=== PATIENT | female | born 1970 | race Caucasian/White ===

== ENCOUNTER 2020-11-03 10:04 | Inpatient (IN) | payer BC ==
[2020-11-03] MEDS ORDERED: Sodium Chloride 0.9% 10 ML Syringe FLUSH PRN ×2 (10:13→12:44)
[2020-11-03] MEDS ORDERED: Etomidate 2 MG/ML 20 ML SDV IVPUSH ONE ×2 (10:15→13:00)
[2020-11-03] MEDS ORDERED: Succinylcholine 200 MG/10 ML MDV IV ONE (10:15)
--- NOTE | 2020-11-03 10:41 | CR ---
Chest: Supine view of the chest was obtained. Comparison: No prior chest imaging is available. Endotracheal tube is seen. Tip lies approximately 1.3 cm above the zach. Nasogastric tube courses off the inferior edge of the exam within the stomach. Lungs are clear with no acute parenchymal change. Bony structures show nothing acute. Impression: 1. Endotracheal tube with tip lying 1.3 cm above the zach. 2. Nasogastric tube coursing off the inferior edge of the film within the stomach. 3. Nothing acute is otherwise seen on supine chest x-ray. Diagnostic code #3
[2020-11-03] MEDS: Sodium Chloride 0.9% 1,000 ML IV SCH ×2 (10:44→19:07)
[2020-11-03] MEDS: propofoL 100 ML IV SCH ×2 (10:44→15:10)
[2020-11-03 11:19] LABS: ACETAMINOPHEN 0 ug/mL (10-30)
[2020-11-03] MEDS ORDERED: Ondansetron 4 MG/2 ML SDV IV PRN (12:44)
[2020-11-03] MEDS ORDERED: Acetaminophen 650 MG Supp RECTAL PRN (12:44)
[2020-11-03] MEDS ORDERED: Sodium Chloride 0.9% 1,000 ML IV SCH (12:45)
[2020-11-03] MEDS ORDERED: Heparin Sodium 5,000 Units/ML Vial SUBCUT SCH (12:45)
--- NOTE | 2020-11-03 12:45 | EDM.PDOC ---
ED HPI GENERAL MEDICAL PROBLEM - General Chief Complaint: Behavioral/Psych Stated Complaint: [facility] Time Seen by Provider: 11/03/20 10:13 Source of Information: Reports: EMS, Family History Limitations: Reports: Altered Mental Status - History of Present Illness INITIAL COMMENTS - FREE TEXT/NARRATIVE: The patient presents by [facility] for an overdose. The patient called her brother and said she took 30-40 of her sleeping pills to end her life. He called 911 and police and EMS arrived to find the patient responding only to deep sternal rub. She was only responsive to sternal rub when she arrived here. She could not give me any history. He brother did call and he confirmed the patient said she took the restoril. She has been depressed. She overdoses 4 years ago and 1 year ago. Onset: Sudden Duration: Hour(s): Severity: Moderate Improves with: Reports: None Worsens with: Reports: None Associated Symptoms: Reports: No Other Symptoms - Related Data Allergies Allergy/AdvReac Type Severity Reaction Status Date / Time No Known Allergies Allergy Verified 11/03/20 10:33 Home Meds: Home Meds Acamprosate [Campral] 333 mg PO TID 11/03/20 [History] LORazepam [Ativan] 0.5 mg PO BID PRN 11/03/20 [History] Meclizine [Antivert] 25 mg PO TID 11/03/20 [History] Melatonin 3 mg PO BEDTIME 11/03/20 [History] Meloxicam 7.5 mg PO DAILY 11/03/20 [History] Metoprolol Succinate [Toprol Xl] 25 mg PO DAILY 11/03/20 [History] Metoprolol Succinate [Toprol Xl] 50 mg PO DAILY 11/03/20 [History] Orphenadrine [Norflex] 100 mg PO BID PRN 11/03/20 [History] Temazepam [Restoril] 30 mg PO BEDTIME PRN 11/03/20 [History] buPROPion HCL [Wellbutrin Xl] 150 mg PO DAILY 11/03/20 [History] Social & Family History - Tobacco Use Tobacco Use Status *Q: Unknown Ever Used Tobacco ED ROS GENERAL - Review of Systems Review Of Systems: Unable To Obtain Reason Not Obtained: Patient responding only to sternal rub - Physical Exam Exam: See Below Exam Limited By: Altered Mental Status General Appearance: Lethargic Ears: Normal External Exam Nose: Normal Inspection Head Exam: Atraumatic, Normocephalic Neck: Normal Inspection Respiratory/Chest: No Respiratory Distress, Lungs Clear, Normal Breath Sounds Cardiovascular: Regular Rate, Rhythm, No Edema, No Murmur GI/Abdominal: Soft, Non-Tender, No Organomegaly, No Mass Neuro Exam (Abbreviated): Other (patient will moan with deep sternal rub and localize) Endotracheal Intubation - Endotracheal Intubation Time of Intubation: 10:10 ET Intubation Indication: Airway Protection Preparation: Suction, Balloon Tested, BVM Set Up, Difficult Airway Equip Pre-Oxygenation: 100% FiO2 Anesthesia Meds: Etomidate, Succinylcholine Placement: Orotracheal, Cuffed, Uncomplicated Placement Cords Visualized: Yes ETT Size In mm: 7.5 Number of Attempts: 1 Confirmed By: CO2 Indicator, Bilateral Breath Sounds, Chest Xray Tube Secured By: By RT #1 Interpretation EKG Date: 11/03/20 Time: 10:52 Rhythm: NSR Rate (Beats/Min): 84 [place]: Normal P-Wave: Present QRS: Normal ST-T: Normal QT: Normal Course - Vital Signs Last Recorded V/S: Last Vital Signs Temp 97.7 F 11/03/20 10:08 Pulse 85 11/03/20 10:08 Resp 8 L 11/03/20 10:08 BP 125/80 11/03/20 10:08 Pulse Ox 95 11/03/20 10:08 - Orders/Labs/Meds Orders: Active Orders 24 hr Category Date Time Status Patient Status [ADT] Routine ADT 11/03/20 12:44 Active Bedrest Bedside Commode [RC] ASDIRECTED Care 11/03/20 12:44 Active Cardiac Monitoring [RC] . DIRECTED Care 11/03/20 10:13 Active Cardiac Monitoring [RC] CONTINUOUS Care 11/03/20 12:46 Active Mchugh Catheter Insertion [Insert Urinary Catheter] [OM. Care 11/03/20 10:30 Ordered PC] Q24H Gastrointestinal Tube Mgmt [RC] ASDIRECTED Care 11/03/20 10:16 Active Intake and Output Strict [RC] ASDIRECTED Care 11/03/20 12:44 Active Oxygen Therapy [RC] ASDIRECTED Care 11/03/20 12:44 Active Peripheral IV Care [RC] . DIRECTED Care 11/03/20 10:14 Active Peripheral IV Care [RC] . DIRECTED Care 11/03/20 12:48 Active Pulse Oximetry [RC] CONTINUOUS Care 11/03/20 12:46 Active RASS Sedation Scale [RC] ASDIRECTED Care 11/03/20 10:16 Active RT Ventilator, Adult [RC] ASDIRECTED Care 11/03/20 10:33 Active Urinary Catheter Assessment [RC] ASDIRECTED Care 11/03/20 10:17 Active Vital Signs [RC] Q6H Care 11/03/20 12:44 Active OT Evaluation and Treatment [CONS] Routine Cons 11/03/20 12:48 Active PT Evaluation and Treatment [CONS] Routine Cons 11/03/20 12:48 Active Nothing per Oral Now Diet [DIET] Diet 11/03/20 Dinner Active MAGNESIUM [CHEM] Routine Lab 11/04/20 06:00 Ordered UA W/MICROSCOPIC [URIN] Routine Lab 11/03/20 12:44 Ordered Acetaminophen [Tylenol] Med 11/03/20 12:44 Active 650 mg RECTAL Q4H PRN Famotidine [Pepcid] Med 11/03/20 21:00 Active 20 mg IVPUSH BID Heparin Sodium Med 11/03/20 12:45 Active 5,000 units SUBCUT Q8H Ondansetron [Zofran] Med 11/03/20 12:44 Active 4 mg IV Q4H PRN Sodium Chloride 0.9% [Normal Saline] 1,000 ml Med 11/03/20 10:15 Active IV ASDIRECTED Sodium Chloride 0.9% [Normal Saline] 1,000 ml Med 11/03/20 12:45 Active IV ASDIRECTED Sodium Chloride 0.9% [Saline Flush] Med 11/03/20 10:13 Active 10 ml FLUSH ASDIRECTED PRN Sodium Chloride 0.9% [Saline Flush] Med 11/03/20 12:44 Active 10 ml FLUSH ASDIRECTED PRN propofoL [Diprivan 100 ML] 100 ml Med 11/03/20 10:30 Active IV TITRATE Desired Level of Sedation (RASS) [AST] Click to Edit Oth 11/03/20 10:16 Ordered NG [Nasogastric Orogastric Tube Insertion] [OM.PC] Oth 11/03/20 10:16 Ordered Routine Peripheral IV Insertion Adult [OM.PC] Routine Oth 11/03/20 12:44 Ordered Peripheral IV Insertion Adult [OM.PC] Stat Ot 11/03/20 10:13 Ordered Precautions [COMM] Routine Oth 11/03/20 12:49 Ordered Seizure Precautions [OM.PC] Routine Oth 11/03/20 12:44 Ordered Resuscitation Status Routine Resus Stat 11/03/20 12:44 Ordered Medication Orders Acetaminophen (Acetaminophen 650 Mg Supp) 650 mg RECTAL Q4H PRN PRN Reason: Pain (mild 1-3) Famotidine (Famotidine 20 Mg/2 Ml Sdv) 20 mg IVPUSH BID JADE Heparin Sodium (Porcine) (Heparin Sodium 5,000 Units/Ml Vial) 5,000 units SUBCUT Q8H JADE Propofol (Diprivan 100 Ml) 100 mls @ 2.4 mls/hr IV TITRATE JADE; Protocol Last Admin: 11/03/20 10:44 Dose: 25 mcg/kg/min, 12 mls/hr Documented by: SANDBLA Sodium Chloride (Normal Saline) 1,000 mls @ 125 mls/hr IV ASDIRECTED JADE Last Admin: 11/03/20 10:44 Dose: 125 mls/hr Documented by: SANDBLA Sodium Chloride (Normal Saline) 1,000 mls @ 125 mls/hr IV ASDIRECTED JADE Ondansetron HCl (Ondansetron 4 Mg/2 Ml Sdv) 4 mg IV Q4H PRN PRN Reason: Nausea/Vomiting Sodium Chloride (Sodium Chloride 0.9% 10 Ml Syringe) 10 ml FLUSH ASDIRECTED PRN PRN Reason: Keep Vein Open Last Admin: 11/03/20 10:45 Dose: 10 ml Documented by: SANDBLA Sodium Chloride (Sodium Chloride 0.9% 10 Ml Syringe) 10 ml FLUSH ASDIRECTED PRN PRN Reason: Keep Vein Open Labs: Laboratory Tests 11/03/20 11/03/20 11/03/20 Range/Units 10:33 10:34 10:48 WBC (3.98-10.04) K/mm3 RBC (3.98-5.22) M/mm3 Hgb (11.2-15.7) gm/dl Hct (34.1-44.9) % MCV (79.4-94.8) fl MCH (25.6-32.2) pg MCHC (32.2-35.5) g/dl RDW Std Deviation (36.4-46.3) fL Plt Count (182-369) K/mm3 MPV (9.4-12.3) fl Neut % (Auto) (34.0-71.1) % Lymph % (Auto) (19.3-51.7) % [place] % (Auto) (4.7-12.5) % Eos % (Auto) (0.7-5.8) Baso % (Auto) (0.1-1.2) % Neut # (Auto) (1.56-6.13) K/mm3 Lymph # (Auto) (1.18-3.74) K/mm3 [place] # (Auto) (0.24-0.36) K/mm3 Eos # (Auto) (0.04-0.36) K/mm3 Baso # (Auto) (0.01-0.08) K/mm3 Puncture Site Rt brachial ABG pH 7.28 L (7.35-7.45) ABG pCO2 42.1 (35.0-45.0) mmHg ABG pO2 130.0 H (80.0-100.0) mmHg ABG HCO3 18.9 L (22.0-26.0) meq/L ABG O2 Saturation 97.8 H (96.0-97.0) % ABG Base Excess -7.2 L (-2-2.0) Edenilson Test Positive A-a Gradient 103 mmHg O2 Delivery Device Ventilator Oxygen Flow Rate FiO2 40.00 (21.00-100.00) % Tidal Volume 425.0 cc PEEP 5.0 cmH20 Sodium (136-145) mEq/L Potassium (3.5-5.1) mEq/L Chloride (98-107) mEq/L Carbon Dioxide (21-32) mEq/L Anion Gap (5-15) BUN (7-18) mg/dL Creatinine (0.55-1.02) mg/dL Est Cr Clr Drug Dosing mL/min Estimated GFR (MDRD) (>60) mL/min BUN/Creatinine Ratio (14-18) Glucose (70-99) mg/dL Calcium (8.5-10.1) mg/dL Total Bilirubin (0.2-1.0) mg/dL AST (15-37) U/L ALT (14-59) U/L Alkaline Phosphatase (46-116) U/L Total Protein (6.4-8.2) g/dl Albumin (3.4-5.0) g/dl Globulin gm/dL Albumin/Globulin Ratio (1-2) Salicylates (2.8-20) mg/dL Urine Opiates Screen Negative (OQWZGY=376) Ur Buprenorphine Scrn Negative (CUTOFF=10) Ur Oxycodone Screen Negative (XSE8OK=123) Urine Methadone Screen Negative (LYKLNK=877) Ur Propoxyphene Screen Negative (IJULOR=552) Acetaminophen (10-30) ug/mL Ur Barbiturates Screen Negative (MTHCRX=817) Ur Tricyclics Screen Negative (NBPDSJ=632) Ur Phencyclidine Scrn Negative (CUTOFF=25) Ur Amphetamine Screen Negative (PPDLQH=248) U Methamphetamines Scrn Negative (FFIBKN=159) U Benzodiazepines Scrn Presumptive positive H (UNNGYJ=204) U Cocaine Metab Screen Negative (QZXPXN=502) U Marijuana (THC) Screen Negative (CUTOFF=50) Ethyl Alcohol (0.00) gm% SARS-CoV-2 RNA (JM) Negative (NEGATIVE) 11/03/20 11/03/20 11/03/20 Range/Units 10:48 10:48 10:48 WBC 10.36 H (3.98-10.04) K/mm3 RBC 4.93 (3.98-5.22) M/mm3 Hgb 15.1 (11.2-15.7) gm/dl Hct 45.8 H (34.1-44.9) % MCV 92.9 (79.4-94.8) fl MCH 30.6 (25.6-32.2) pg MCHC 33.0 (32.2-35.5) g/dl RDW Std Deviation 43.0 (36.4-46.3) fL Plt Count 246 (182-369) K/mm3 MPV 9.6 (9.4-12.3) fl Neut % (Auto) 68.6 (34.0-71.1) % Lymph % (Auto) 20.6 (19.3-51.7) % [place] % (Auto) 7.5 (4.7-12.5) % Eos % (Auto) 2.8 (0.7-5.8) Baso % (Auto) 0.2 (0.1-1.2) % Neut # (Auto) 7.11 H (1.56-6.13) K/mm3 Lymph # (Auto) 2.13 (1.18-3.74) K/mm3 [place] # (Auto) 0.78 H (0.24-0.36) K/mm3 Eos # (Auto) 0.29 (0.04-0.36) K/mm3 Baso # (Auto) 0.02 (0.01-0.08) K/mm3 Puncture Site ABG pH (7.35-7.45) ABG pCO2 (35.0-45.0) mmHg ABG pO2 (80.0-100.0) mmHg ABG HCO3 (22.0-26.0) meq/L ABG O2 Saturation (96.0-97.0) % ABG Base Excess (-2-2.0) [place]il[place] Test A-a Gradient mmHg O2 Delivery Device Oxygen Flow Rate FiO2 (21.00-100.00) % Tidal Volume cc PEEP cmH20 Sodium 143 (136-145) mEq/L Potassium 3.7 (3.5-5.1) mEq/L Chloride 110 H (98-107) mEq/L Carbon Dioxide 19 L (21-32) mEq/L Anion Gap 17.7 H (5-15) BUN 12 (7-18) mg/dL Creatinine 0.7 (0.55-1.02) mg/dL Est Cr Clr Drug Dosing 86.52 mL/min Estimated GFR (MDRD) > 60 (>60) mL/min BUN/Creatinine Ratio 17.1 (14-18) Glucose 101 H (70-99) mg/dL Calcium 7.9 L (8.5-10.1) mg/dL Total Bilirubin 0.3 (0.2-1.0) mg/dL AST 28 (15-37) U/L ALT 44 (14-59) U/L Alkaline Phosphatase 70 (46-116) U/L Total Protein 6.8 (6.4-8.2) g/dl Albumin 3.3 L (3.4-5.0) g/dl Globulin 3.5 gm/dL Albumin/Globulin Ratio 0.9 L (1-2) Salicylates 2.5 L (2.8-20) mg/dL Urine Opiates Screen (MBLYIP=633) Ur Buprenorphine Scrn (CUTOFF=10) Ur Oxycodone Screen (JMK6RL=746) Urine Methadone Screen (JBFSEX=128) Ur Propoxyphene Screen (IELWTJ=789) Acetaminophen 0 L (10-30) ug/mL Ur Barbiturates Screen (BCKTBK=308) Ur Tricyclics Screen (PAQFES=112) Ur Phencyclidine Scrn (CUTOFF=25) Ur Amphetamine Screen (EERMIU=788) U Methamphetamines Scrn (ILOZBI=926) U Benzodiazepines Scrn (MKSTVB=953) U Cocaine Metab Screen (XSXVDR=375) U Marijuana (THC) Screen (CUTOFF=50) Ethyl Alcohol 0.25 (0.00) gm% SARS-CoV-2 RNA (JM) (NEGATIVE) Meds: Medications Generic Name Dose Route Start Last Admin Trade Name Freq PRN Reason Stop Dose Admin Acetaminophen 650 mg 11/03/20 12:44 Acetaminophen 650 Mg Supp RECTAL Q4H PRN Pain (mild 1-3) Famotidine 20 mg 11/03/20 21:00 Famotidine 20 Mg/2 Ml Sdv IVPUSH BID JADE Heparin Sodium (Porcine) 5,000 units 11/03/20 12:45 Heparin Sodium 5,000 Units/Ml Vial SUBCUT Q8H JADE Propofol 100 mls @ 2.4 mls/hr 11/03/20 10:30 11/03/20 10:44 Diprivan 100 Ml IV 25 mcg/kg/min TITRATE JADE 12 mls/hr Administration Protocol 5 MCG/KG/MIN Sodium Chloride 1,000 mls @ 125 mls/hr 11/03/20 10:15 11/03/20 10:44 Normal Saline IV 125 mls/hr ASDIRECTED JADE Administration Sodium Chloride 1,000 mls @ 125 mls/hr 11/03/20 12:45 Normal Saline IV ASDIRECTED JADE Ondansetron HCl 4 mg 11/03/20 12:44 Ondansetron 4 Mg/2 Ml Sdv IV Q4H PRN Nausea/Vomiting Sodium Chloride 10 ml 11/03/20 10:13 11/03/20 10:45 Sodium Chloride 0.9% 10 Ml Syringe FLUSH 10 ml ASDIRECTED PRN Administration Keep Vein Open Sodium Chloride 10 ml 11/03/20 12:44 Sodium Chloride 0.9% 10 Ml Syringe FLUSH ASDIRECTED PRN Keep Vein Open Discontinued Medications Generic Name Dose Route Start Last Admin Trade Name Edvin PRN Reason Stop Dose Admin Etomidate 20 mg 11/03/20 10:15 11/03/20 10:09 Etomidate 2 Mg/Ml 20 Ml Sdv IVPUSH 11/03/20 10:16 20 mg ONETIME ONE Administration Succinylcholine Chloride 100 mg 11/03/20 10:15 11/03/20 10:09 Succinylcholine 200 Mg/10 Ml Mdv IV 11/03/20 10:16 100 mg ONETIME ONE Administration - Re-Assessments/Exams Free Text/Narrative Re-Assessment/Exam: 11/03/20 12:59 The patient was not alert and would respond to deep sternal rub. I was worried about her airway. I ordered etomidate 20mg, succinylcholine 100mg and I intubated the patient without difficulty. I ordered propofol for sedation I ordered labs, EKG, drug screen, CXR and COVID 19. An NG tube and mchugh cath were placed. Her EKG shows a NSR with no acute changes. Her CXR shows good placement of the ET tube and NG tube. Her WBC is elevated at 10.36. Her Ph was 7.28. Her pCO2 was normal at 42. He pO2 was elevated at 130. Her anion gap was elevated at 17.7. Her aspirin and tylenol were normal. Her drug screen was positive for benzos which she is on. Poison control was contacted and they said the restoril has a short half life. They are concerned there may have been something else she may have taken. Her alcohol was elevated that could have made things worse. She will need to be admitted. I called Dr Jha and she agreed to the admission. 11/03/20 13:06 Critical care time was 45minutes. Departure - Departure Time of Disposition: 13:10 Disposition: Admitted As Inpatient 66 Condition: Critical Clinical Impression: Suicidal ideation, Respiratory difficulty Overdose Qualifiers: Encounter type: initial encounter Injury intent: intentional self-harm Qualified Code(s): T50.902A - Poisoning by unspecified drugs, medicaments and biological substances, intentional self-harm, initial encounter Depression Qualifiers: Depression Type: other depression Qualified Code(s): F32.89 - Other specified depressive episodes - Discharge Information Referrals: Lady Robledo PA-C [Primary Care Provider] - Forms: ED Department Discharge Sepsis Event Note (ED) - Evaluation Sepsis Screening Result: No Definite Risk - Focused Exam Vital Signs: Vital Signs Temp Pulse Resp BP Pulse Ox 11/03/20 10:08 97.7 F 85 8 L 125/80 95 - My Orders Last 24 Hours: My Active Orders 11/03/20 10:13 Cardiac Monitoring [RC] . DIRECTED Sodium Chloride 0.9% [Saline Flush] 10 ml FLUSH ASDIRECTED PRN Peripheral IV Insertion Adult [OM.PC] Stat 11/03/20 10:14 Peripheral IV Care [RC] . DIRECTED 11/03/20 10:15 Sodium Chloride 0.9% [Normal Saline] 1,000 ml IV ASDIRECTED 11/03/20 10:16 Gastrointestinal Tube Mgmt [RC] ASDIRECTED RASS Sedation Scale [RC] ASDIRECTED Desired Level of Sedation (RASS) [AST] Click to Edit NG [Nasogastric Orogastric Tube Insertion] [OM.PC] Routine 11/03/20 10:17 Urinary Catheter Assessment [RC] ASDIRECTED 11/03/20 10:30 Mchugh Catheter Insertion [Insert Urinary Catheter] [OM.PC] Q24H propofoL [Diprivan 100 ML] 100 ml IV TITRATE 11/03/20 10:33 RT Ventilator, Adult [RC] ASDIRECTED - Assessment/Plan Last 24 Hours: My Active Orders 11/03/20 10:13 Cardiac Monitoring [RC] . DIRECTED Sodium Chloride 0.9% [Saline Flush] 10 ml FLUSH ASDIRECTED PRN Peripheral IV Insertion Adult [OM.PC] Stat 11/03/20 10:14 Peripheral IV Care [RC] . DIRECTED 11/03/20 10:15 Sodium Chloride 0.9% [Normal Saline] 1,000 ml IV ASDIRECTED 11/03/20 10:16 Gastrointestinal Tube Mgmt [RC] ASDIRECTED RASS Sedation Scale [RC] ASDIRECTED Desired Level of Sedation (RASS) [AST] Click to Edit NG [Nasogastric Orogastric Tube Insertion] [OM.PC] Routine 11/03/20 10:17 Urinary Catheter Assessment [RC] ASDIRECTED 11/03/20 10:30 Mchugh Catheter Insertion [Insert Urinary Catheter] [OM.PC] Q24H propofoL [Diprivan 100 ML] 100 ml IV TITRATE 11/03/20 10:33 RT Ventilator, Adult [RC] ASDIRECTED
[2020-11-03] MEDS ORDERED: Succinylcholine 200 MG/10 ML MDV ONE (13:00)
--- NOTE | 2020-11-03 13:23 | PCM.HP.2 ---
H&P History of Present Illness - General Date of Service: 11/03/20 Admit Problem/Dx: Admission Diagnosis/Problem Admission Diagnosis/Problem Overdose of illicit drug Source of Information: Family History Limitations: Reports: Altered Mental Status, Other (sedated, intubated) - History of Present Illness Initial Comments - Free Text/Narative: 50yof with medical history of suicidal ideation and attempt, etoh abuse and dependence, anxiety, depression, chronic vertigo, insomnia, chronic pain, and hypertension took approximately 300 pills, temazepam and then called brother who stated she had slurred speech then was unresponsive and he called 911. She arrived in ER and poison control was called. The half life of med is short, labs are stable and she was intubated to protect her airway. No further history could be obtained Onset of Symptoms: Reports: Today Duration of Symptoms: Reports: Hour(s): Location: Reports: Generalized Severity: Severe Improves with: Reports: None Worsens with: Reports: None Associated Symptoms: Reports: Confusion - Related Data Allergies/Adverse Reactions: Allergies Allergy/AdvReac Type Severity Reaction Status Date / Time No Known Allergies Allergy Verified 11/03/20 10:33 Home Medications: Home Meds Acamprosate [Campral] 333 mg PO TID 11/03/20 [History] LORazepam [Ativan] 0.5 mg PO BID PRN 11/03/20 [History] Meclizine [Antivert] 25 mg PO TID 11/03/20 [History] Melatonin 3 mg PO BEDTIME 11/03/20 [History] Meloxicam 7.5 mg PO DAILY 11/03/20 [History] Metoprolol Succinate [Toprol Xl] 25 mg PO DAILY 11/03/20 [History] Metoprolol Succinate [Toprol Xl] 50 mg PO DAILY 11/03/20 [History] Orphenadrine [Norflex] 100 mg PO BID PRN 11/03/20 [History] Temazepam [Restoril] 30 mg PO BEDTIME PRN 11/03/20 [History] buPROPion HCL [Wellbutrin Xl] 150 mg PO DAILY 11/03/20 [History] Past Medical History - Past Health History Medical/Surgical History: Denies Medical/Surgical History Cardiovascular History: Reports: Hypertension Musculoskeletal History: Reports: Other (See Below) (chonic pain, chronic spasm and leg cramps) Neurological History: Reports: Vertigo, Other (See Below) (insomnia) Psychiatric History: Reports: Addiction, Anxiety, Depression, Suicide Attempt, Suicidal Ideation, Other (See Below) (etoh abuse and dependance) Social & Family History - Tobacco Use Tobacco Use Status *Q: Unknown Ever Used Tobacco H&P Review of Systems - Review of Systems: Review Of Systems: Unable To Obtain Reason Not Obtained: intbuated nad sedated from overdose Exam - Exam Exam: See Below - Vital Signs Vital Signs: Last Vital Signs Temp 97.7 F 11/03/20 10:08 Pulse 85 11/03/20 10:08 Resp 8 L 11/03/20 10:08 BP 125/80 11/03/20 10:08 Pulse Ox 95 11/03/20 10:08 Weight: 176 lb 5.917 oz - Exam Quality Assessment: Supplemental Oxygen, Restraints, Other (intubated and sed ated) HEENT: Other (sluggish pupils) Neck: Supple, Trachea Midline Lungs: Other (course bilateral, intubated) Cardiovascular: Regular Rate, Regular Rhythm Extremities: Normal Inspection, No Pedal Edema Peripheral Pulses: 1+: Dorsalis Pedis (L), Dorsalis Pedis (R) Skin: Warm, Dry Neuro Extensive - Mental Status: Other (intubated and sedated) Psychiatric: Suicidal Ideation, Other (intubated and sedated) - Patient Data Lab Results Last 24 hrs: Laboratory Results - last 24 hr 11/03/20 11/03/20 11/03/20 Range/Units 10:33 10:34 10:37 WBC (3.98-10.04) K/mm3 RBC (3.98-5.22) M/mm3 Hgb (11.2-15.7) gm/dl Hct (34.1-44.9) % MCV (79.4-94.8) fl MCH (25.6-32.2) pg MCHC (32.2-35.5) g/dl RDW Std Deviation (36.4-46.3) fL Plt Count (182-369) K/mm3 MPV (9.4-12.3) fl Neut % (Auto) (34.0-71.1) % Lymph % (Auto) (19.3-51.7) % Cross % (Auto) (4.7-12.5) % Eos % (Auto) (0.7-5.8) Baso % (Auto) (0.1-1.2) % Neut # (Auto) (1.56-6.13) K/mm3 Lymph # (Auto) (1.18-3.74) K/mm3 Cross # (Auto) (0.24-0.36) K/mm3 Eos # (Auto) (0.04-0.36) K/mm3 Baso # (Auto) (0.01-0.08) K/mm3 Puncture Site Rt brachial ABG pH 7.28 L (7.35-7.45) ABG pCO2 42.1 (35.0-45.0) mmHg ABG pO2 130.0 H (80.0-100.0) mmHg ABG HCO3 18.9 L (22.0-26.0) meq/L ABG O2 Saturation 97.8 H (96.0-97.0) % ABG Base Excess -7.2 L (-2-2.0) Edenilson Test Positive A-a Gradient 103 mmHg O2 Delivery Device Ventilator Oxygen Flow Rate FiO2 40.00 (21.00-100.00) % Tidal Volume 425.0 cc PEEP 5.0 cmH20 Sodium (136-145) mEq/L Potassium (3.5-5.1) mEq/L Chloride (98-107) mEq/L Carbon Dioxide (21-32) mEq/L Anion Gap (5-15) BUN (7-18) mg/dL Creatinine (0.55-1.02) mg/dL Est Cr Clr Drug Dosing mL/min Estimated GFR (MDRD) (>60) mL/min BUN/Creatinine Ratio (14-18) Glucose (70-99) mg/dL Calcium (8.5-10.1) mg/dL Total Bilirubin (0.2-1.0) mg/dL AST (15-37) U/L ALT (14-59) U/L Alkaline Phosphatase (46-116) U/L Total Protein (6.4-8.2) g/dl Albumin (3.4-5.0) g/dl Globulin gm/dL Albumin/Globulin Ratio (1-2) Urine Color Yellow (Yellow) Urine Appearance Clear (Clear) Urine pH 6.5 (5.0-8.0) Ur Specific [place] 1.010 (1.005-1.030) Urine Protein Negative (Negative) Urine Glucose (UA) Negative (Negative) Urine Ketones Negative (Negative) Urine Occult Blood Negative (Negative) Urine Nitrite Negative (Negative) Urine Bilirubin Negative (Negative) Urine Urobilinogen 0.2 (0.2-1.0) Ur Leukocyte Esterase Negative (Negative) Urine RBC 0-5 (0-5) /hpf Urine WBC 0-5 (0-5) /hpf Ur Squamous Epith Cells 0-5 (0-5) /hpf Urine Bacteria Few (FEW) /hpf Urine Mucus Few (FEW) /hpf Salicylates (2.8-20) mg/dL Urine Opiates Screen (GRKCCH=311) Ur Buprenorphine Scrn (CUTOFF=10) Ur Oxycodone Screen (AGQ2HM=613) Urine Methadone Screen (TKWNMN=446) Ur Propoxyphene Screen (SZMHQW=670) Acetaminophen (10-30) ug/mL Ur Barbiturates Screen (FJPPBH=393) Ur Tricyclics Screen (OVZJZD=704) Ur Phencyclidine Scrn (CUTOFF=25) Ur Amphetamine Screen (PAUFSU=583) U Methamphetamines Scrn (GMPGVU=232) U Benzodiazepines Scrn (ZJQIPW=238) U Cocaine Metab Screen (UFIXZK=989) U Marijuana (THC) Screen (CUTOFF=50) Ethyl Alcohol (0.00) gm% SARS-CoV-2 RNA (JM) Negative (NEGATIVE) 11/03/20 11/03/20 11/03/20 Range/Units 10:48 10:48 10:48 WBC 10.36 H (3.98-10.04) K/mm3 RBC 4.93 (3.98-5.22) M/mm3 Hgb 15.1 (11.2-15.7) gm/dl Hct 45.8 H (34.1-44.9) % MCV 92.9 (79.4-94.8) fl MCH 30.6 (25.6-32.2) pg MCHC 33.0 (32.2-35.5) g/dl RDW Std Deviation 43.0 (36.4-46.3) fL Plt Count 246 (182-369) K/mm3 MPV 9.6 (9.4-12.3) fl Neut % (Auto) 68.6 (34.0-71.1) % Lymph % (Auto) 20.6 (19.3-51.7) % Cross % (Auto) 7.5 (4.7-12.5) % Eos % (Auto) 2.8 (0.7-5.8) Baso % (Auto) 0.2 (0.1-1.2) % Neut # (Auto) 7.11 H (1.56-6.13) K/mm3 Lymph # (Auto) 2.13 (1.18-3.74) K/mm3 Cross # (Auto) 0.78 H (0.24-0.36) K/mm3 Eos # (Auto) 0.29 (0.04-0.36) K/mm3 Baso # (Auto) 0.02 (0.01-0.08) K/mm3 Puncture Site ABG pH (7.35-7.45) ABG pCO2 (35.0-45.0) mmHg ABG pO2 (80.0-100.0) mmHg ABG HCO3 (22.0-26.0) meq/L ABG O2 Saturation (96.0-97.0) % ABG Base Excess (-2-2.0) Edenilson Test A-a Gradient mmHg O2 Delivery Device Oxygen Flow Rate FiO2 (21.00-100.00) % Tidal Volume cc PEEP cmH20 Sodium 143 (136-145) mEq/L Potassium 3.7 (3.5-5.1) mEq/L Chloride 110 H (98-107) mEq/L Carbon Dioxide 19 L (21-32) mEq/L Anion Gap 17.7 H (5-15) BUN 12 (7-18) mg/dL Creatinine 0.7 (0.55-1.02) mg/dL Est Cr Clr Drug Dosing 86.52 mL/min Estimated GFR (MDRD) > 60 (>60) mL/min BUN/Creatinine Ratio 17.1 (14-18) Glucose 101 H (70-99) mg/dL Calcium 7.9 L (8.5-10.1) mg/dL Total Bilirubin 0.3 (0.2-1.0) mg/dL AST 28 (15-37) U/L ALT 44 (14-59) U/L Alkaline Phosphatase 70 (46-116) U/L Total Protein 6.8 (6.4-8.2) g/dl Albumin 3.3 L (3.4-5.0) g/dl Globulin 3.5 gm/dL Albumin/Globulin Ratio 0.9 L (1-2) Urine Color (Yellow) Urine Appearance (Clear) Urine pH (5.0-8.0) Ur Specific [place] (1.005-1.030) Urine Protein (Negative) Urine Glucose (UA) (Negative) Urine Ketones (Negative) Urine Occult Blood (Negative) Urine Nitrite (Negative) Urine Bilirubin (Negative) Urine Urobilinogen (0.2-1.0) Ur Leukocyte Esterase (Negative) Urine RBC (0-5) /hpf Urine WBC (0-5) /hpf Ur Squamous Epith Cells (0-5) /hpf Urine Bacteria (FEW) /hpf Urine Mucus (FEW) /hpf Salicylates (2.8-20) mg/dL Urine Opiates Screen Negative (IPHYUF=983) Ur Buprenorphine Scrn Negative (CUTOFF=10) Ur Oxycodone Screen Negative (BCR0LL=617) Urine Methadone Screen Negative (BLMOVI=956) Ur Propoxyphene Screen Negative (NUSTWX=028) Acetaminophen 0 L (10-30) ug/mL Ur Barbiturates Screen Negative (SIXFSV=338) Ur Tricyclics Screen Negative (TPROHC=849) Ur Phencyclidine Scrn Negative (CUTOFF=25) Ur Amphetamine Screen Negative (QPBCIJ=789) U Methamphetamines Scrn Negative (FEABEG=552) U Benzodiazepines Scrn Presumptive positive H (JELKUJ=452) U Cocaine Metab Screen Negative (PRGBCC=925) U Marijuana (THC) Screen Negative (CUTOFF=50) Ethyl Alcohol 0.25 (0.00) gm% SARS-CoV-2 RNA (JM) (NEGATIVE) 11/03/20 Range/Units 10:48 WBC (3.98-10.04) K/mm3 RBC (3.98-5.22) M/mm3 Hgb (11.2-15.7) gm/dl Hct (34.1-44.9) % MCV (79.4-94.8) fl MCH (25.6-32.2) pg MCHC (32.2-35.5) g/dl RDW Std Deviation (36.4-46.3) fL Plt Count (182-369) K/mm3 MPV (9.4-12.3) fl Neut % (Auto) (34.0-71.1) % Lymph % (Auto) (19.3-51.7) % Cross % (Auto) (4.7-12.5) % Eos % (Auto) (0.7-5.8) Baso % (Auto) (0.1-1.2) % Neut # (Auto) (1.56-6.13) K/mm3 Lymph # (Auto) (1.18-3.74) K/mm3 Cross # (Auto) (0.24-0.36) K/mm3 Eos # (Auto) (0.04-0.36) K/mm3 Baso # (Auto) (0.01-0.08) K/mm3 Puncture Site ABG pH (7.35-7.45) ABG pCO2 (35.0-45.0) mmHg ABG pO2 (80.0-100.0) mmHg ABG HCO3 (22.0-26.0) meq/L ABG O2 Saturation (96.0-97.0) % ABG Base Excess (-2-2.0) Edenilson Test A-a Gradient mmHg O2 Delivery Device Oxygen Flow Rate FiO2 (21.00-100.00) % Tidal Volume cc PEEP cmH20 Sodium (136-145) mEq/L Potassium (3.5-5.1) mEq/L Chloride (98-107) mEq/L Carbon Dioxide (21-32) mEq/L Anion Gap (5-15) BUN (7-18) mg/dL Creatinine (0.55-1.02) mg/dL Est Cr Clr Drug Dosing mL/min Estimated GFR (MDRD) (>60) mL/min BUN/Creatinine Ratio (14-18) Glucose (70-99) mg/dL Calcium (8.5-10.1) mg/dL Total Bilirubin (0.2-1.0) mg/dL AST (15-37) U/L ALT (14-59) U/L Alkaline Phosphatase (46-116) U/L Total Protein (6.4-8.2) g/dl Albumin (3.4-5.0) g/dl Globulin gm/dL Albumin/Globulin Ratio (1-2) Urine Color (Yellow) Urine Appearance (Clear) Urine pH (5.0-8.0) Ur Specific [place] (1.005-1.030) Urine Protein (Negative) Urine Glucose (UA) (Negative) Urine Ketones (Negative) Urine Occult Blood (Negative) Urine Nitrite (Negative) Urine Bilirubin (Negative) Urine Urobilinogen (0.2-1.0) Ur Leukocyte Esterase (Negative) Urine RBC (0-5) /hpf Urine WBC (0-5) /hpf Ur Squamous Epith Cells (0-5) /hpf Urine Bacteria (FEW) /hpf Urine Mucus (FEW) /hpf Salicylates 2.5 L (2.8-20) mg/dL Urine Opiates Screen (LYOORF=226) Ur Buprenorphine Scrn (CUTOFF=10) Ur Oxycodone Screen (ITE2IK=955) Urine Methadone Screen (YEXVXU=565) Ur Propoxyphene Screen (FPPZPV=827) Acetaminophen (10-30) ug/mL Ur Barbiturates Screen (GLLXTX=434) Ur Tricyclics Screen (KOGLIW=091) Ur Phencyclidine Scrn (CUTOFF=25) Ur Amphetamine Screen (HGMCRV=479) U Methamphetamines Scrn (VXVQBS=970) U Benzodiazepines Scrn (JSCCQW=424) U Cocaine Metab Screen (MFLNTK=043) U Marijuana (THC) Screen (CUTOFF=50) Ethyl Alcohol (0.00) gm% SARS-CoV-2 RNA (JM) (NEGATIVE) Result Diagrams: 11/03/20 10:48 11/03/20 10:48 Sepsis Event Note - Evaluation Sepsis Screening Result: No Definite Risk - Focused Exam Vital Signs: Vital Signs Temp Pulse Resp BP Pulse Ox 11/03/20 10:08 97.7 F 85 8 L 125/80 95 Problem List Initiated/Reviewed/Updated: Yes Orders Last 24hrs: Active Orders 24 hr Category Date Time Status Patient Status [ADT] Routine ADT 11/03/20 12:44 Active Bedrest Bedside Commode [RC] ASDIRECTED Care 11/03/20 12:44 Active Cardiac Monitoring [RC] . DIRECTED Care 11/03/20 10:13 Active Cardiac Monitoring [RC] CONTINUOUS Care 11/03/20 12:46 Active Montero Catheter Insertion [Insert Urinary Catheter] [OM. Care 11/03/20 10:30 Ordered PC] Q24H Gastrointestinal Tube Mgmt [RC] ASDIRECTED Care 11/03/20 10:16 Active Intake and Output Strict [RC] ASDIRECTED Care 11/03/20 12:44 Active Oxygen Therapy [RC] ASDIRECTED Care 11/03/20 12:44 Active Peripheral IV Care [RC] . DIRECTED Care 11/03/20 10:14 Active Peripheral IV Care [RC] . DIRECTED Care 11/03/20 12:48 Active Pulse Oximetry [RC] CONTINUOUS Care 11/03/20 12:46 Active RASS Sedation Scale [RC] ASDIRECTED Care 11/03/20 10:16 Active RT Ventilator, Adult [RC] ASDIRECTED Care 11/03/20 10:33 Active Urinary Catheter Assessment [RC] ASDIRECTED Care 11/03/20 10:17 Active Vital Signs [RC] Q6H Care 11/03/20 12:44 Active OT Evaluation and Treatment [CONS] Routine Cons 11/03/20 12:48 Active PT Evaluation and Treatment [CONS] Routine Cons 11/03/20 12:48 Active Nothing per Oral Now Diet [DIET] Diet 11/03/20 Dinner Active MAGNESIUM [CHEM] Routine Lab 11/04/20 06:00 Ordered Acetaminophen [Tylenol] Med 11/03/20 12:44 Active 650 mg RECTAL Q4H PRN Famotidine [Pepcid] Med 11/03/20 21:00 Active 20 mg IVPUSH BID Heparin Sodium Med 11/03/20 14:30 Active 5,000 units SUBCUT Q8H Ondansetron [Zofran] Med 11/03/20 12:44 Active 4 mg IV Q4H PRN Sodium Chloride 0.9% [Normal Saline] 1,000 ml Med 11/03/20 10:15 Active IV ASDIRECTED Sodium Chloride 0.9% [Normal Saline] 1,000 ml Med 11/03/20 12:45 Active IV ASDIRECTED Sodium Chloride 0.9% [Saline Flush] Med 11/03/20 10:13 Active 10 ml FLUSH ASDIRECTED PRN Sodium Chloride 0.9% [Saline Flush] Med 11/03/20 12:44 Active 10 ml FLUSH ASDIRECTED PRN propofoL [Diprivan 100 ML] 100 ml Med 11/03/20 10:30 Active IV TITRATE Desired Level of Sedation (RASS) [AST] Click to Edit Oth 11/03/20 10:16 Ordered NG [Nasogastric Orogastric Tube Insertion] [OM.PC] Oth 11/03/20 10:16 Ordered Routine Peripheral IV Insertion Adult [OM.PC] Routine Oth 11/03/20 12:44 Ordered Peripheral IV Insertion Adult [OM.PC] Stat Ot 11/03/20 10:13 Ordered Precautions [COMM] Routine Ot 11/03/20 12:49 Ordered Seizure Precautions [OM.PC] Routine Oth 11/03/20 12:44 Ordered Resuscitation Status Routine Resus Stat 11/03/20 12:44 Ordered Medication Orders Acetaminophen (Acetaminophen 650 Mg Supp) 650 mg RECTAL Q4H PRN PRN Reason: Pain (mild 1-3) Famotidine (Famotidine 20 Mg/2 Ml Sdv) 20 mg IVPUSH BID JADE Heparin Sodium (Porcine) (Heparin Sodium 5,000 Units/Ml Vial) 5,000 units SUBCUT Q8H JADE Propofol (Diprivan 100 Ml) 100 mls @ 2.4 mls/hr IV TITRATE JADE; Protocol Last Admin: 11/03/20 10:44 Dose: 25 mcg/kg/min, 12 mls/hr Documented by: SANDBLA Sodium Chloride (Normal Saline) 1,000 mls @ 125 mls/hr IV ASDIRECTED JADE Last Admin: 11/03/20 10:44 Dose: 125 mls/hr Documented by: SANDBLA Sodium Chloride (Normal Saline) 1,000 mls @ 125 mls/hr IV ASDIRECTED JADE Ondansetron HCl (Ondansetron 4 Mg/2 Ml Sdv) 4 mg IV Q4H PRN PRN Reason: Nausea/Vomiting Sodium Chloride (Sodium Chloride 0.9% 10 Ml Syringe) 10 ml FLUSH ASDIRECTED PRN PRN Reason: Keep Vein Open Last Admin: 11/03/20 10:45 Dose: 10 ml Documented by: SANDBLA Sodium Chloride (Sodium Chloride 0.9% 10 Ml Syringe) 10 ml FLUSH ASDIRECTED PRN PRN Reason: Keep Vein Open Assessment/Plan Comment:: 1. suicidal ideation/attempt-patient has a history of suicide attempt 1 year ago and 4 years ago. The patient also has on this attempt temazepam and ethyl alcohol on her to screening. When the patient is extubated and more alert and orientated x4 we will have her seen by hopefully Dr. Rhodes for psychiatry. I am anticipating this patient is going to need any inpatient transfer. 2. overdose- temazapam, and positive ethyl alcohol. The patient had a ethyl alcohol level of 0.25. Very negligible at this point. The patient is starting to wake up. Presently we are going to keep her sedated for a little bit longer and then start weaning process in a few hours. 3. etoh abuse and dependance and the patient does take acompensate for her alcohol abuse and dependence. This medication is being held at this time. 4. anxiety/depression-the patient does normally take Wellbutrin. Again being held and after being deemed by psychiatry we will make a decision when that will be restarted. 5. vertigo -appear that it is a chronic issue. Is also may be secondary to one of her other medications she is chronically on. 6. insomnia 7. chronic pain and spasm- I do believe that this may be a side effect of one of the other medications like her chronic pain/spasm medication orphenadrine. I will have to ask further questions if this is a restless leg syndrome issue. 8. hypertension-we will restart metoprolol when able to take orals. Only no as needed's are required ppx- heparin full code 80 min
[2020-11-03] MEDS: Heparin Sodium 5,000 Units/ML Vial SUBCUT SCH ×2 (14:01→22:15)
[2020-11-03] MEDS: Famotidine 20 MG/2 ML SDV IVPUSH SCH (20:37)
[2020-11-04] MEDS: Sodium Chloride 0.9% 1,000 ML IV SCH (03:07)
[2020-11-04] MEDS: Heparin Sodium 5,000 Units/ML Vial SUBCUT SCH (06:22)
--- NOTE | 2020-11-04 06:47 | PCM.PN ---
- General Info Date of Service: 11/04/20 - Patient Data Vitals - Most Recent: Last Vital Signs Temp 98.5 F 11/04/20 04:00 Pulse 83 11/04/20 02:00 Resp 16 11/04/20 04:00 BP 155/92 H 11/04/20 04:00 Pulse Ox 5 L 11/04/20 04:00 Weight - Most Recent: 178 lb 12.8 oz I&O - Last 24 Hours: Intake & Output 11/03/20 11/03/20 11/04/20 14:59 22:59 06:59 Intake Total 168 2136 Output Total 1100 550 900 Balance -1100 -382 1236 Lab Results Last 24 Hours: Laboratory Results - last 24 hr 11/03/20 11/03/20 11/03/20 Range/Units 10:33 10:34 10:37 WBC (3.98-10.04) K/mm3 RBC (3.98-5.22) M/mm3 Hgb (11.2-15.7) gm/dl Hct (34.1-44.9) % MCV (79.4-94.8) fl MCH (25.6-32.2) pg MCHC (32.2-35.5) g/dl RDW Std Deviation (36.4-46.3) fL Plt Count (182-369) K/mm3 MPV (9.4-12.3) fl Neut % (Auto) (34.0-71.1) % Lymph % (Auto) (19.3-51.7) % [place] % (Auto) (4.7-12.5) % Eos % (Auto) (0.7-5.8) Baso % (Auto) (0.1-1.2) % Neut # (Auto) (1.56-6.13) K/mm3 Lymph # (Auto) (1.18-3.74) K/mm3 [place] # (Auto) (0.24-0.36) K/mm3 Eos # (Auto) (0.04-0.36) K/mm3 Baso # (Auto) (0.01-0.08) K/mm3 Puncture Site Rt brachial ABG pH 7.28 L (7.35-7.45) ABG pCO2 42.1 (35.0-45.0) mmHg ABG pO2 130.0 H (80.0-100.0) mmHg ABG HCO3 18.9 L (22.0-26.0) meq/L ABG O2 Saturation 97.8 H (96.0-97.0) % ABG Base Excess -7.2 L (-2-2.0) Edenilson Test Positive A-a Gradient 103 mmHg O2 Delivery Device Ventilator Oxygen Flow Rate FiO2 40.00 (21.00-100.00) % Tidal Volume 425.0 cc PEEP 5.0 cmH20 Sodium (136-145) mEq/L Potassium (3.5-5.1) mEq/L Chloride (98-107) mEq/L Carbon Dioxide (21-32) mEq/L Anion Gap (5-15) BUN (7-18) mg/dL Creatinine (0.55-1.02) mg/dL Est Cr Clr Drug Dosing mL/min Estimated GFR (MDRD) (>60) mL/min BUN/Creatinine Ratio (14-18) Glucose (70-99) mg/dL Calcium (8.5-10.1) mg/dL Total Bilirubin (0.2-1.0) mg/dL AST (15-37) U/L ALT (14-59) U/L Alkaline Phosphatase (46-116) U/L Total Protein (6.4-8.2) g/dl Albumin (3.4-5.0) g/dl Globulin gm/dL Albumin/Globulin Ratio (1-2) Urine Color Yellow (Yellow) Urine Appearance Clear (Clear) Urine pH 6.5 (5.0-8.0) Ur Specific Harper 1.010 (1.005-1.030) Urine Protein Negative (Negative) Urine Glucose (UA) Negative (Negative) Urine Ketones Negative (Negative) Urine Occult Blood Negative (Negative) Urine Nitrite Negative (Negative) Urine Bilirubin Negative (Negative) Urine Urobilinogen 0.2 (0.2-1.0) Ur Leukocyte Esterase Negative (Negative) Urine RBC 0-5 (0-5) /hpf Urine WBC 0-5 (0-5) /hpf Ur Squamous Epith Cells 0-5 (0-5) /hpf Urine Bacteria Few (FEW) /hpf Urine Mucus Few (FEW) /hpf Salicylates (2.8-20) mg/dL Urine Opiates Screen (CSKYNH=719) Ur Buprenorphine Scrn (CUTOFF=10) Ur Oxycodone Screen (SLW7AO=902) Urine Methadone Screen (BBAUFI=764) Ur Propoxyphene Screen (WBUWKT=393) Acetaminophen (10-30) ug/mL Ur Barbiturates Screen (ORPKZB=986) Ur Tricyclics Screen (RKDVBY=461) Ur Phencyclidine Scrn (CUTOFF=25) Ur Amphetamine Screen (AYRHHB=019) U Methamphetamines Scrn (VLMVJG=369) U Benzodiazepines Scrn (BCTDNR=254) U Cocaine Metab Screen (ARDKLA=449) U Marijuana (THC) Screen (CUTOFF=50) Ethyl Alcohol (0.00) gm% SARS-CoV-2 RNA (JM) Negative (NEGATIVE) 11/03/20 11/03/20 11/03/20 Range/Units 10:48 10:48 10:48 WBC 10.36 H (3.98-10.04) K/mm3 RBC 4.93 (3.98-5.22) M/mm3 Hgb 15.1 (11.2-15.7) gm/dl Hct 45.8 H (34.1-44.9) % MCV 92.9 (79.4-94.8) fl MCH 30.6 (25.6-32.2) pg MCHC 33.0 (32.2-35.5) g/dl RDW Std Deviation 43.0 (36.4-46.3) fL Plt Count 246 (182-369) K/mm3 MPV 9.6 (9.4-12.3) fl Neut % (Auto) 68.6 (34.0-71.1) % Lymph % (Auto) 20.6 (19.3-51.7) % [place] % (Auto) 7.5 (4.7-12.5) % Eos % (Auto) 2.8 (0.7-5.8) Baso % (Auto) 0.2 (0.1-1.2) % Neut # (Auto) 7.11 H (1.56-6.13) K/mm3 Lymph # (Auto) 2.13 (1.18-3.74) K/mm3 [place] # (Auto) 0.78 H (0.24-0.36) K/mm3 Eos # (Auto) 0.29 (0.04-0.36) K/mm3 Baso # (Auto) 0.02 (0.01-0.08) K/mm3 Puncture Site ABG pH (7.35-7.45) ABG pCO2 (35.0-45.0) mmHg ABG pO2 (80.0-100.0) mmHg ABG HCO3 (22.0-26.0) meq/L ABG O2 Saturation (96.0-97.0) % ABG Base Excess (-2-2.0) Edenilson Test A-a Gradient mmHg O2 Delivery Device Oxygen Flow Rate FiO2 (21.00-100.00) % Tidal Volume cc PEEP cmH20 Sodium 143 (136-145) mEq/L Potassium 3.7 (3.5-5.1) mEq/L Chloride 110 H (98-107) mEq/L Carbon Dioxide 19 L (21-32) mEq/L Anion Gap 17.7 H (5-15) BUN 12 (7-18) mg/dL Creatinine 0.7 (0.55-1.02) mg/dL Est Cr Clr Drug Dosing 86.52 mL/min Estimated GFR (MDRD) > 60 (>60) mL/min BUN/Creatinine Ratio 17.1 (14-18) Glucose 101 H (70-99) mg/dL Calcium 7.9 L (8.5-10.1) mg/dL Total Bilirubin 0.3 (0.2-1.0) mg/dL AST 28 (15-37) U/L ALT 44 (14-59) U/L Alkaline Phosphatase 70 (46-116) U/L Total Protein 6.8 (6.4-8.2) g/dl Albumin 3.3 L (3.4-5.0) g/dl Globulin 3.5 gm/dL Albumin/Globulin Ratio 0.9 L (1-2) Urine Color (Yellow) Urine Appearance (Clear) Urine pH (5.0-8.0) Ur Specific Harper (1.005-1.030) Urine Protein (Negative) Urine Glucose (UA) (Negative) Urine Ketones (Negative) Urine Occult Blood (Negative) Urine Nitrite (Negative) Urine Bilirubin (Negative) Urine Urobilinogen (0.2-1.0) Ur Leukocyte Esterase (Negative) Urine RBC (0-5) /hpf Urine WBC (0-5) /hpf Ur Squamous Epith Cells (0-5) /hpf Urine Bacteria (FEW) /hpf Urine Mucus (FEW) /hpf Salicylates (2.8-20) mg/dL Urine Opiates Screen Negative (AFRMXF=305) Ur Buprenorphine Scrn Negative (CUTOFF=10) Ur Oxycodone Screen Negative (OHC5IR=194) Urine Methadone Screen Negative (ZNLPGV=918) Ur Propoxyphene Screen Negative (RIYINF=794) Acetaminophen 0 L (10-30) ug/mL Ur Barbiturates Screen Negative (GZKVCW=191) Ur Tricyclics Screen Negative (LXXVAL=601) Ur Phencyclidine Scrn Negative (CUTOFF=25) Ur Amphetamine Screen Negative (KENEAT=933) U Methamphetamines Scrn Negative (PMQZDP=381) U Benzodiazepines Scrn Presumptive positive H (YVCMDQ=443) U Cocaine Metab Screen Negative (ORFVSF=755) U Marijuana (THC) Screen Negative (CUTOFF=50) Ethyl Alcohol 0.25 (0.00) gm% SARS-CoV-2 RNA (JM) (NEGATIVE) 11/03/20 11/03/20 Range/Units 10:48 14:32 WBC (3.98-10.04) K/mm3 RBC (3.98-5.22) M/mm3 Hgb (11.2-15.7) gm/dl Hct (34.1-44.9) % MCV (79.4-94.8) fl MCH (25.6-32.2) pg MCHC (32.2-35.5) g/dl RDW Std Deviation (36.4-46.3) fL Plt Count (182-369) K/mm3 MPV (9.4-12.3) fl Neut % (Auto) (34.0-71.1) % Lymph % (Auto) (19.3-51.7) % [place] % (Auto) (4.7-12.5) % Eos % (Auto) (0.7-5.8) Baso % (Auto) (0.1-1.2) % Neut # (Auto) (1.56-6.13) K/mm3 Lymph # (Auto) (1.18-3.74) K/mm3 [place] # (Auto) (0.24-0.36) K/mm3 Eos # (Auto) (0.04-0.36) K/mm3 Baso # (Auto) (0.01-0.08) K/mm3 Puncture Site ABG pH (7.35-7.45) ABG pCO2 (35.0-45.0) mmHg ABG pO2 (80.0-100.0) mmHg ABG HCO3 (22.0-26.0) meq/L ABG O2 Saturation (96.0-97.0) % ABG Base Excess (-2-2.0) Edenilson Test A-a Gradient mmHg O2 Delivery Device Oxygen Flow Rate FiO2 (21.00-100.00) % Tidal Volume cc PEEP cmH20 Sodium (136-145) mEq/L Potassium (3.5-5.1) mEq/L Chloride (98-107) mEq/L Carbon Dioxide (21-32) mEq/L Anion Gap (5-15) BUN (7-18) mg/dL Creatinine (0.55-1.02) mg/dL Est Cr Clr Drug Dosing mL/min Estimated GFR (MDRD) (>60) mL/min BUN/Creatinine Ratio (14-18) Glucose (70-99) mg/dL Calcium (8.5-10.1) mg/dL Total Bilirubin (0.2-1.0) mg/dL AST (15-37) U/L ALT (14-59) U/L Alkaline Phosphatase (46-116) U/L Total Protein (6.4-8.2) g/dl Albumin (3.4-5.0) g/dl Globulin gm/dL Albumin/Globulin Ratio (1-2) Urine Color (Yellow) Urine Appearance (Clear) Urine pH (5.0-8.0) Ur Specific Harper (1.005-1.030) Urine Protein (Negative) Urine Glucose (UA) (Negative) Urine Ketones (Negative) Urine Occult Blood (Negative) Urine Nitrite (Negative) Urine Bilirubin (Negative) Urine Urobilinogen (0.2-1.0) Ur Leukocyte Esterase (Negative) Urine RBC (0-5) /hpf Urine WBC (0-5) /hpf Ur Squamous Epith Cells (0-5) /hpf Urine Bacteria (FEW) /hpf Urine Mucus (FEW) /hpf Salicylates 2.5 L 2.1 L (2.8-20) mg/dL Urine Opiates Screen (PRMXCX=816) Ur Buprenorphine Scrn (CUTOFF=10) Ur Oxycodone Screen (EPL2EI=580) Urine Methadone Screen (NLKAMW=120) Ur Propoxyphene Screen (JAZGLT=377) Acetaminophen (10-30) ug/mL Ur Barbiturates Screen (RAVRQN=017) Ur Tricyclics Screen (ZLWONS=335) Ur Phencyclidine Scrn (CUTOFF=25) Ur Amphetamine Screen (ETARRF=006) U Methamphetamines Scrn (LMPPNX=559) U Benzodiazepines Scrn (ZQJLWS=235) U Cocaine Metab Screen (UZAOKH=821) U Marijuana (THC) Screen (CUTOFF=50) Ethyl Alcohol (0.00) gm% SARS-CoV-2 RNA (JM) (NEGATIVE) Med Orders - Current: Current Medications Acetaminophen (Acetaminophen 650 Mg Supp) 650 mg RECTAL Q4H PRN PRN Reason: Pain (mild 1-3) Famotidine (Famotidine 20 Mg/2 Ml Sdv) 20 mg IVPUSH BID [facility] Last Admin: 11/03/20 20:37 Dose: 20 mg Documented by: Heparin Sodium (Porcine) (Heparin Sodium 5,000 Units/Ml Vial) 5,000 units SUBCUT Q8H [facility] Last Admin: 11/04/20 06:22 Dose: 5,000 units Documented by: Propofol (Diprivan 100 Ml) 100 mls @ 2.4 mls/hr IV TITRATE JADE; Protocol Last Admin: 11/03/20 15:10 Dose: 40 mcg/kg/min, 19.2 mls/hr Documented by: Sodium Chloride (Normal Saline) 1,000 mls @ 125 mls/hr IV ASDIRECTED JADE Last Admin: 11/04/20 03:07 Dose: 125 mls/hr Documented by: Sodium Chloride (Normal Saline) 1,000 mls @ 125 mls/hr IV ASDIRECTED JADE Ondansetron HCl (Ondansetron 4 Mg/2 Ml Sdv) 4 mg IV Q4H PRN PRN Reason: Nausea/Vomiting Sodium Chloride (Sodium Chloride 0.9% 10 Ml Syringe) 10 ml FLUSH ASDIRECTED PRN PRN Reason: Keep Vein Open Last Admin: 11/03/20 10:45 Dose: 10 ml Documented by: Sodium Chloride (Sodium Chloride 0.9% 10 Ml Syringe) 10 ml FLUSH ASDIRECTED PRN PRN Reason: Keep Vein Open Discontinued Medications Etomidate (Etomidate 2 Mg/Ml 20 Ml Sdv) 20 mg IVPUSH ONETIME ONE Stop: 11/03/20 10:16 Last Admin: 11/03/20 10:09 Dose: 20 mg Documented by: Etomidate (Etomidate 2 Mg/Ml 20 Ml Sdv) 40 mg IVPUSH .STK-MED ONE Stop: 11/03/20 13:01 Heparin Sodium (Porcine) (Heparin Sodium 5,000 Units/Ml Vial) 5,000 units SUBCUT Q8H JADE Last Admin: 11/03/20 12:59 Dose: Not Given Documented by: Succinylcholine Chloride (Succinylcholine 200 Mg/10 Ml Mdv) 100 mg IV ONETIME ONE Stop: 11/03/20 10:16 Last Admin: 11/03/20 10:09 Dose: 100 mg Documented by: Succinylcholine Chloride (Succinylcholine 200 Mg/10 Ml Mdv) 200 mg .ROUTE .STK- MED ONE Stop: 11/03/20 13:01 - Exam Urinary Catheter Total Time: 0Days 7Hours - Patient Data Lab Results Last 24 hrs: Laboratory Results - last 24 hr 11/03/20 11/03/20 11/03/20 Range/Units 10:33 10:34 10:37 WBC (3.98-10.04) K/mm3 RBC (3.98-5.22) M/mm3 Hgb (11.2-15.7) gm/dl Hct (34.1-44.9) % MCV (79.4-94.8) fl MCH (25.6-32.2) pg MCHC (32.2-35.5) g/dl RDW Std Deviation (36.4-46.3) fL Plt Count (182-369) K/mm3 MPV (9.4-12.3) fl Neut % (Auto) (34.0-71.1) % Lymph % (Auto) (19.3-51.7) % [place] % (Auto) (4.7-12.5) % Eos % (Auto) (0.7-5.8) Baso % (Auto) (0.1-1.2) % Neut # (Auto) (1.56-6.13) K/mm3 Lymph # (Auto) (1.18-3.74) K/mm3 [place] # (Auto) (0.24-0.36) K/mm3 Eos # (Auto) (0.04-0.36) K/mm3 Baso # (Auto) (0.01-0.08) K/mm3 Puncture Site Rt brachial ABG pH 7.28 L (7.35-7.45) ABG pCO2 42.1 (35.0-45.0) mmHg ABG pO2 130.0 H (80.0-100.0) mmHg ABG HCO3 18.9 L (22.0-26.0) meq/L ABG O2 Saturation 97.8 H (96.0-97.0) % ABG Base Excess -7.2 L (-2-2.0) Edenilson Test Positive A-a Gradient 103 mmHg O2 Delivery Device Ventilator Oxygen Flow Rate FiO2 40.00 (21.00-100.00) % Tidal Volume 425.0 cc PEEP 5.0 cmH20 Sodium (136-145) mEq/L Potassium (3.5-5.1) mEq/L Chloride (98-107) mEq/L Carbon Dioxide (21-32) mEq/L Anion Gap (5-15) BUN (7-18) mg/dL Creatinine (0.55-1.02) mg/dL Est Cr Clr Drug Dosing mL/min Estimated GFR (MDRD) (>60) mL/min BUN/Creatinine Ratio (14-18) Glucose (70-99) mg/dL Calcium (8.5-10.1) mg/dL Total Bilirubin (0.2-1.0) mg/dL AST (15-37) U/L ALT (14-59) U/L Alkaline Phosphatase (46-116) U/L Total Protein (6.4-8.2) g/dl Albumin (3.4-5.0) g/dl Globulin gm/dL Albumin/Globulin Ratio (1-2) Urine Color Yellow (Yellow) Urine Appearance Clear (Clear) Urine pH 6.5 (5.0-8.0) Ur Specific Harper 1.010 (1.005-1.030) Urine Protein Negative (Negative) Urine Glucose (UA) Negative (Negative) Urine Ketones Negative (Negative) Urine Occult Blood Negative (Negative) Urine Nitrite Negative (Negative) Urine Bilirubin Negative (Negative) Urine Urobilinogen 0.2 (0.2-1.0) Ur Leukocyte Esterase Negative (Negative) Urine RBC 0-5 (0-5) /hpf Urine WBC 0-5 (0-5) /hpf Ur Squamous Epith Cells 0-5 (0-5) /hpf Urine Bacteria Few (FEW) /hpf Urine Mucus Few (FEW) /hpf Salicylates (2.8-20) mg/dL Urine Opiates Screen (AHBAUN=435) Ur Buprenorphine Scrn (CUTOFF=10) Ur Oxycodone Screen (GIX0CF=818) Urine Methadone Screen (YBIGRV=965) Ur Propoxyphene Screen (PWTUQN=854) Acetaminophen (10-30) ug/mL Ur Barbiturates Screen (JSMPPW=028) Ur Tricyclics Screen (ZAGYRD=289) Ur Phencyclidine Scrn (CUTOFF=25) Ur Amphetamine Screen (IMGEES=847) U Methamphetamines Scrn (YVOVED=693) U Benzodiazepines Scrn (CNZVKK=828) U Cocaine Metab Screen (ZOTDXB=373) U Marijuana (THC) Screen (CUTOFF=50) Ethyl Alcohol (0.00) gm% SARS-CoV-2 RNA (JM) Negative (NEGATIVE) 11/03/20 11/03/20 11/03/20 Range/Units 10:48 10:48 10:48 WBC 10.36 H (3.98-10.04) K/mm3 RBC 4.93 (3.98-5.22) M/mm3 Hgb 15.1 (11.2-15.7) gm/dl Hct 45.8 H (34.1-44.9) % MCV 92.9 (79.4-94.8) fl MCH 30.6 (25.6-32.2) pg MCHC 33.0 (32.2-35.5) g/dl RDW Std Deviation 43.0 (36.4-46.3) fL Plt Count 246 (182-369) K/mm3 MPV 9.6 (9.4-12.3) fl Neut % (Auto) 68.6 (34.0-71.1) % Lymph % (Auto) 20.6 (19.3-51.7) % [place] % (Auto) 7.5 (4.7-12.5) % Eos % (Auto) 2.8 (0.7-5.8) Baso % (Auto) 0.2 (0.1-1.2) % Neut # (Auto) 7.11 H (1.56-6.13) K/mm3 Lymph # (Auto) 2.13 (1.18-3.74) K/mm3 [place] # (Auto) 0.78 H (0.24-0.36) K/mm3 Eos # (Auto) 0.29 (0.04-0.36) K/mm3 Baso # (Auto) 0.02 (0.01-0.08) K/mm3 Puncture Site ABG pH (7.35-7.45) ABG pCO2 (35.0-45.0) mmHg ABG pO2 (80.0-100.0) mmHg ABG HCO3 (22.0-26.0) meq/L ABG O2 Saturation (96.0-97.0) % ABG Base Excess (-2-2.0) Edenilson Test A-a Gradient mmHg O2 Delivery Device Oxygen Flow Rate FiO2 (21.00-100.00) % Tidal Volume cc PEEP cmH20 Sodium 143 (136-145) mEq/L Potassium 3.7 (3.5-5.1) mEq/L Chloride 110 H (98-107) mEq/L Carbon Dioxide 19 L (21-32) mEq/L Anion Gap 17.7 H (5-15) BUN 12 (7-18) mg/dL Creatinine 0.7 (0.55-1.02) mg/dL Est Cr Clr Drug Dosing 86.52 mL/min Estimated GFR (MDRD) > 60 (>60) mL/min BUN/Creatinine Ratio 17.1 (14-18) Glucose 101 H (70-99) mg/dL Calcium 7.9 L (8.5-10.1) mg/dL Total Bilirubin 0.3 (0.2-1.0) mg/dL AST 28 (15-37) U/L ALT 44 (14-59) U/L Alkaline Phosphatase 70 (46-116) U/L Total Protein 6.8 (6.4-8.2) g/dl Albumin 3.3 L (3.4-5.0) g/dl Globulin 3.5 gm/dL Albumin/Globulin Ratio 0.9 L (1-2) Urine Color (Yellow) Urine Appearance (Clear) Urine pH (5.0-8.0) Ur Specific Harper (1.005-1.030) Urine Protein (Negative) Urine Glucose (UA) (Negative) Urine Ketones (Negative) Urine Occult Blood (Negative) Urine Nitrite (Negative) Urine Bilirubin (Negative) Urine Urobilinogen (0.2-1.0) Ur Leukocyte Esterase (Negative) Urine RBC (0-5) /hpf Urine WBC (0-5) /hpf Ur Squamous Epith Cells (0-5) /hpf Urine Bacteria (FEW) /hpf Urine Mucus (FEW) /hpf Salicylates (2.8-20) mg/dL Urine Opiates Screen Negative (CGCIMG=388) Ur Buprenorphine Scrn Negative (CUTOFF=10) Ur Oxycodone Screen Negative (MQC6GZ=085) Urine Methadone Screen Negative (FYDFEU=805) Ur Propoxyphene Screen Negative (HGPTPE=846) Acetaminophen 0 L (10-30) ug/mL Ur Barbiturates Screen Negative (JVKEXU=237) Ur Tricyclics Screen Negative (HKYJAO=540) Ur Phencyclidine Scrn Negative (CUTOFF=25) Ur Amphetamine Screen Negative (USWWDT=963) U Methamphetamines Scrn Negative (EQQVXA=476) U Benzodiazepines Scrn Presumptive positive H (ADQRXQ=034) U Cocaine Metab Screen Negative (VZEKZD=461) U Marijuana (THC) Screen Negative (CUTOFF=50) Ethyl Alcohol 0.25 (0.00) gm% SARS-CoV-2 RNA (JM) (NEGATIVE) 11/03/20 11/03/20 Range/Units 10:48 14:32 WBC (3.98-10.04) K/mm3 RBC (3.98-5.22) M/mm3 Hgb (11.2-15.7) gm/dl Hct (34.1-44.9) % MCV (79.4-94.8) fl MCH (25.6-32.2) pg MCHC (32.2-35.5) g/dl RDW Std Deviation (36.4-46.3) fL Plt Count (182-369) K/mm3 MPV (9.4-12.3) fl Neut % (Auto) (34.0-71.1) % Lymph % (Auto) (19.3-51.7) % [place] % (Auto) (4.7-12.5) % Eos % (Auto) (0.7-5.8) Baso % (Auto) (0.1-1.2) % Neut # (Auto) (1.56-6.13) K/mm3 Lymph # (Auto) (1.18-3.74) K/mm3 [place] # (Auto) (0.24-0.36) K/mm3 Eos # (Auto) (0.04-0.36) K/mm3 Baso # (Auto) (0.01-0.08) K/mm3 Puncture Site ABG pH (7.35-7.45) ABG pCO2 (35.0-45.0) mmHg ABG pO2 (80.0-100.0) mmHg ABG HCO3 (22.0-26.0) meq/L ABG O2 Saturation (96.0-97.0) % ABG Base Excess (-2-2.0) Edenilson Test A-a Gradient mmHg O2 Delivery Device Oxygen Flow Rate FiO2 (21.00-100.00) % Tidal Volume cc PEEP cmH20 Sodium (136-145) mEq/L Potassium (3.5-5.1) mEq/L Chloride (98-107) mEq/L Carbon Dioxide (21-32) mEq/L Anion Gap (5-15) BUN (7-18) mg/dL Creatinine (0.55-1.02) mg/dL Est Cr Clr Drug Dosing mL/min Estimated GFR (MDRD) (>60) mL/min BUN/Creatinine Ratio (14-18) Glucose (70-99) mg/dL Calcium (8.5-10.1) mg/dL Total Bilirubin (0.2-1.0) mg/dL AST (15-37) U/L ALT (14-59) U/L Alkaline Phosphatase (46-116) U/L Total Protein (6.4-8.2) g/dl Albumin (3.4-5.0) g/dl Globulin gm/dL Albumin/Globulin Ratio (1-2) Urine Color (Yellow) Urine Appearance (Clear) Urine pH (5.0-8.0) Ur Specific Harper (1.005-1.030) Urine Protein (Negative) Urine Glucose (UA) (Negative) Urine Ketones (Negative) Urine Occult Blood (Negative) Urine Nitrite (Negative) Urine Bilirubin (Negative) Urine Urobilinogen (0.2-1.0) Ur Leukocyte Esterase (Negative) Urine RBC (0-5) /hpf Urine WBC (0-5) /hpf Ur Squamous Epith Cells (0-5) /hpf Urine Bacteria (FEW) /hpf Urine Mucus (FEW) /hpf Salicylates 2.5 L 2.1 L (2.8-20) mg/dL Urine Opiates Screen (HGZNCW=689) Ur Buprenorphine Scrn (CUTOFF=10) Ur Oxycodone Screen (UDK2QY=157) Urine Methadone Screen (IDTAEA=691) Ur Propoxyphene Screen (NBWJFJ=823) Acetaminophen (10-30) ug/mL Ur Barbiturates Screen (LLVBSN=952) Ur Tricyclics Screen (ZNYZZB=848) Ur Phencyclidine Scrn (CUTOFF=25) Ur Amphetamine Screen (IGPVRP=139) U Methamphetamines Scrn (IKGQSI=729) U Benzodiazepines Scrn (EOFJVB=685) U Cocaine Metab Screen (CHTZXG=895) U Marijuana (THC) Screen (CUTOFF=50) Ethyl Alcohol (0.00) gm% SARS-CoV-2 RNA (JM) (NEGATIVE) Result Diagrams: 11/03/20 10:48 11/03/20 10:48 Sepsis Event Note - Evaluation Sepsis Screening Result: No Definite Risk - Focused Exam Vital Signs: Vital Signs Temp Pulse Resp BP BP Pulse Ox Pulse Ox 11/04/20 04:00 98.5 F 16 155/92 H 5 L 11/04/20 02:00 83 16 140/87 96 11/04/20 00:00 99.2 F 17 146/91 H 95 11/03/20 22:29 93 L 11/03/20 22:28 93 L 11/03/20 22:00 91 18 125/81 92 L 11/03/20 21:00 81 15 129/81 93 L 11/03/20 20:00 98.2 F 12 128/83 98 11/03/20 19:01 82 17 95 11/03/20 19:00 88 20 126/80 95 11/03/20 18:59 87 19 95 - My Orders Last 24 Hours: My Active Orders 11/03/20 12:44 Patient Status [ADT] Routine Bedrest Bedside Commode [RC] ASDIRECTED Intake and Output Strict [RC] Q2HR Oxygen Therapy [RC] ASDIRECTED Vital Signs [RC] Q4HR Acetaminophen [Tylenol] 650 mg RECTAL Q4H PRN Ondansetron [Zofran] 4 mg IV Q4H PRN Sodium Chloride 0.9% [Saline Flush] 10 ml FLUSH ASDIRECTED PRN Peripheral IV Insertion Adult [OM.PC] Routine Seizure Precautions [OM.PC] Routine Resuscitation Status Routine 11/03/20 12:45 Sodium Chloride 0.9% [Normal Saline] 1,000 ml IV ASDIRECTED 11/03/20 12:46 Cardiac Monitoring [RC] CONTINUOUS Pulse Oximetry [RC] CONTINUOUS 11/03/20 12:48 OT Evaluation and Treatment [CONS] Routine PT Evaluation and Treatment [CONS] Routine 11/03/20 12:49 Precautions [COMM] Routine 11/03/20 13:05 Initiate/Renew Non-Violent Restraints (All Ages) Q24H 11/03/20 14:30 Heparin Sodium 5,000 units SUBCUT Q8H 11/03/20 15:00 One To One Therapy [BH] Routine 11/03/20 Dinner Clear Liquid Diet [DIET] 11/03/20 21:00 Famotidine [Pepcid] 20 mg IVPUSH BID 11/04/20 06:20 MAGNESIUM [CHEM] Routine 11/04/20 13:05 Initiate/Renew Non-Violent Restraints (All Ages) Q24H - Plan Plan:: 1. suicidal ideation/attempt-patient has a history of suicide attempt 1 year ago and 4 years ago. The patient also has on this attempt temazepam and ethyl alcohol on her to screening. When the patient is extubated and more alert and orientated x4 we will have her seen by hopefully Dr. Rhodes for psychiatry. I am anticipating this patient is going to need any inpatient transfer. 2. overdose- temazapam, and positive ethyl alcohol. The patient had a ethyl alcohol level of 0.25. Very negligible at this point. The patient is starting to wake up. Presently we are going to keep her sedated for a little bit longer and then start weaning process in a few hours. 3. etoh abuse and dependance and the patient does take acompensate for her alcohol abuse and dependence. This medication is being held at this time. 4. anxiety/depression-the patient does normally take Wellbutrin. Again being held and after being deemed by psychiatry we will make a decision when that will be restarted. 5. vertigo -appear that it is a chronic issue. Is also may be secondary to one of her other medications she is chronically on. 6. insomnia 7. chronic pain and spasm- I do believe that this may be a side effect of one of the other medications like her chronic pain/spasm medication orphenadrine. I will have to ask further questions if this is a restless leg syndrome issue. 8. hypertension-we will restart metoprolol when able to take orals. Only no as needed's are required ppx- heparin full code 80 min
--- NOTE | 2020-11-04 08:41 | PCM.DCSUM1 ---
Discharge Summary - Hospital Course Free Text/Narrative:: 1. suicidal ideation/attempt-patient has a history of suicide attempt 1 year ago and 4 years ago. The patient also has on this attempt temazepam and ethyl alcohol on her to screening. When the patient is extubated and more alert and orientated x4 we will have her seen by hopefully Dr. Rhodes for psychiatry. I am anticipating this patient is going to need any inpatient transfer. 11/04 extubated yesterday afternoon, stable labs and medically cleared. seen by telepsych and recommendations of zoloft and vitamins are prescribed, ZANA to himt o review. and ds home today 2. overdose- temazapam, and positive ethyl alcohol. The patient had a ethyl alcohol level of 0.25. Very negligible at this point. The patient is starting to wake up. Presently we are going to keep her sedated for a little bit longer and then start weaning process in a few hours. 11/04 as stated above 3. etoh abuse and dependance and the patient does take acompensate for her alcohol abuse and dependence. This medication is being held at this time. 4. anxiety/depression-the patient does normally take Wellbutrin. Again being held and after being deemed by psychiatry we will make a decision when that will be restarted. 11/04 zoloft to be started 5. vertigo -appear that it is a chronic issue. Is also may be secondary to one of her other medications she is chronically on. 6. insomnia 11/04 no meds prescribed 7. chronic pain and spasm- I do believe that this may be a side effect of one of the other medications like her chronic pain/spasm medication orphenadrine. I will have to ask further questions if this is a restless leg syndrome issue. 8. hypertension-we will restart metoprolol when able to take orals. Only no as needed's are required ppx- heparin full code 36 min Brief History: 50yof with significant etoh abuse who drank too much and then took entire bottle of sleeping meds presented to er and was intubated. hx of suicidal ideation and attempts in past Modified [place] Scale: No Symptoms at All Modified [place] Scale Score: 0 - Discharge Data Discharge Date: 11/04/20 Discharge Disposition: Home, Self-Care 01 Condition: Good - Referral to Home Health Date of Face to Face Encounter: 11/04/20 Primary Care Physician: JIMI Edouard - Patient Summary/Data Consults: Consultations 11/03/20 12:48 OT Evaluation and Treatment [CONS] Routine PT Evaluation and Treatment [CONS] Routine - Patient Instructions Diet: Regular Diet as Tolerated Activity: As Tolerated Driving: May Drive Today Showering/Bathing: May Shower Other/Special Instructions: see psych and pcp in next week - Discharge Plan *PRESCRIPTION DRUG MONITORING PROGRAM REVIEWED*: Not Applicable *COPY OF PRESCRIPTION DRUG MONITORING REPORT IN PATIENT RICHARD: Not Applicable Home Medications: Home Meds Acamprosate [Campral] 333 mg PO TID 11/03/20 [History] LORazepam [Ativan] 0.5 mg PO BID PRN 11/03/20 [History] Meclizine [Antivert] 25 mg PO TID PRN 11/03/20 [History] Meloxicam 7.5 mg PO DAILY 11/03/20 [History] Metoprolol Succinate [Toprol Xl] 25 mg PO 0200 11/03/20 [History] Metoprolol Succinate [Toprol Xl] 50 mg PO 2100 11/03/20 [History] Orphenadrine [Norflex] 100 mg PO BID PRN 11/03/20 [History] Temazepam [Restoril] 30 mg PO BEDTIME PRN 11/03/20 [History] Oxygen Therapy Mode: Room Air Forms: ED Department Discharge Referrals: Lady Robledo PA-C [Primary Care Provider] - - Discharge Summary/Plan Comment DC Time >30 min.: Yes Total # of Minutes for Discharge Time: 36 - Patient Data Vitals - Most Recent: Last Vital Signs Temp 98.5 F 11/04/20 04:00 Pulse 80 11/04/20 06:14 Resp 16 11/04/20 06:14 BP 141/89 H 11/04/20 06:14 Pulse Ox 96 11/04/20 06:14 Weight - Most Recent: 178 lb 12.8 oz I&O - Last 24 hours: Intake & Output 11/03/20 11/04/20 11/04/20 22:59 06:59 14:59 Intake Total 168 2136 Output Total 550 900 Balance -382 1236 Lab Results - Last 24 hrs: Laboratory Results - last 24 hr 11/03/20 11/03/20 11/03/20 Range/Units 10:33 10:34 10:37 WBC (3.98-10.04) K/mm3 RBC (3.98-5.22) M/mm3 Hgb (11.2-15.7) gm/dl Hct (34.1-44.9) % MCV (79.4-94.8) fl MCH (25.6-32.2) pg MCHC (32.2-35.5) g/dl RDW Std Deviation (36.4-46.3) fL Plt Count (182-369) K/mm3 MPV (9.4-12.3) fl Neut % (Auto) (34.0-71.1) % Lymph % (Auto) (19.3-51.7) % Cameron % (Auto) (4.7-12.5) % Eos % (Auto) (0.7-5.8) Baso % (Auto) (0.1-1.2) % Neut # (Auto) (1.56-6.13) K/mm3 Lymph # (Auto) (1.18-3.74) K/mm3 Cameron # (Auto) (0.24-0.36) K/mm3 Eos # (Auto) (0.04-0.36) K/mm3 Baso # (Auto) (0.01-0.08) K/mm3 Puncture Site Rt brachial ABG pH 7.28 L (7.35-7.45) ABG pCO2 42.1 (35.0-45.0) mmHg ABG pO2 130.0 H (80.0-100.0) mmHg ABG HCO3 18.9 L (22.0-26.0) meq/L ABG O2 Saturation 97.8 H (96.0-97.0) % ABG Base Excess -7.2 L (-2-2.0) Edenilson Test Positive A-a Gradient 103 mmHg O2 Delivery Device Ventilator Oxygen Flow Rate FiO2 40.00 (21.00-100.00) % Tidal Volume 425.0 cc PEEP 5.0 cmH20 Sodium (136-145) mEq/L Potassium (3.5-5.1) mEq/L Chloride (98-107) mEq/L Carbon Dioxide (21-32) mEq/L Anion Gap (5-15) BUN (7-18) mg/dL Creatinine (0.55-1.02) mg/dL Est Cr Clr Drug Dosing mL/min Estimated GFR (MDRD) (>60) mL/min BUN/Creatinine Ratio (14-18) Glucose (70-99) mg/dL Calcium (8.5-10.1) mg/dL Magnesium (1.8-2.4) mg/dL Total Bilirubin (0.2-1.0) mg/dL AST (15-37) U/L ALT (14-59) U/L Alkaline Phosphatase (46-116) U/L Total Protein (6.4-8.2) g/dl Albumin (3.4-5.0) g/dl Globulin gm/dL Albumin/Globulin Ratio (1-2) Urine Color Yellow (Yellow) Urine Appearance Clear (Clear) Urine pH 6.5 (5.0-8.0) Ur Specific Raymond 1.010 (1.005-1.030) Urine Protein Negative (Negative) Urine Glucose (UA) Negative (Negative) Urine Ketones Negative (Negative) Urine Occult Blood Negative (Negative) Urine Nitrite Negative (Negative) Urine Bilirubin Negative (Negative) Urine Urobilinogen 0.2 (0.2-1.0) Ur Leukocyte Esterase Negative (Negative) Urine RBC 0-5 (0-5) /hpf Urine WBC 0-5 (0-5) /hpf Ur Squamous Epith Cells 0-5 (0-5) /hpf Urine Bacteria Few (FEW) /hpf Urine Mucus Few (FEW) /hpf Salicylates (2.8-20) mg/dL Urine Opiates Screen (NYUEJW=405) Ur Buprenorphine Scrn (CUTOFF=10) Ur Oxycodone Screen (ADD5KF=373) Urine Methadone Screen (AZWCFZ=536) Ur Propoxyphene Screen (URKGQJ=721) Acetaminophen (10-30) ug/mL Ur Barbiturates Screen (JDBPJM=709) Ur Tricyclics Screen (XLJCQB=252) Ur Phencyclidine Scrn (CUTOFF=25) Ur Amphetamine Screen (AZZGRS=173) U Methamphetamines Scrn (MPUVFC=054) U Benzodiazepines Scrn (GEDAWP=913) U Cocaine Metab Screen (QMVQRV=416) U Marijuana (THC) Screen (CUTOFF=50) Ethyl Alcohol (0.00) gm% SARS-CoV-2 RNA (JM) Negative (NEGATIVE) 11/03/20 11/03/20 11/03/20 Range/Units 10:48 10:48 10:48 WBC 10.36 H (3.98-10.04) K/mm3 RBC 4.93 (3.98-5.22) M/mm3 Hgb 15.1 (11.2-15.7) gm/dl Hct 45.8 H (34.1-44.9) % MCV 92.9 (79.4-94.8) fl MCH 30.6 (25.6-32.2) pg MCHC 33.0 (32.2-35.5) g/dl RDW Std Deviation 43.0 (36.4-46.3) fL Plt Count 246 (182-369) K/mm3 MPV 9.6 (9.4-12.3) fl Neut % (Auto) 68.6 (34.0-71.1) % Lymph % (Auto) 20.6 (19.3-51.7) % Cameron % (Auto) 7.5 (4.7-12.5) % Eos % (Auto) 2.8 (0.7-5.8) Baso % (Auto) 0.2 (0.1-1.2) % Neut # (Auto) 7.11 H (1.56-6.13) K/mm3 Lymph # (Auto) 2.13 (1.18-3.74) K/mm3 Cameron # (Auto) 0.78 H (0.24-0.36) K/mm3 Eos # (Auto) 0.29 (0.04-0.36) K/mm3 Baso # (Auto) 0.02 (0.01-0.08) K/mm3 Puncture Site ABG pH (7.35-7.45) ABG pCO2 (35.0-45.0) mmHg ABG pO2 (80.0-100.0) mmHg ABG HCO3 (22.0-26.0) meq/L ABG O2 Saturation (96.0-97.0) % ABG Base Excess (-2-2.0) Edenilson Test A-a Gradient mmHg O2 Delivery Device Oxygen Flow Rate FiO2 (21.00-100.00) % Tidal Volume cc PEEP cmH20 Sodium 143 (136-145) mEq/L Potassium 3.7 (3.5-5.1) mEq/L Chloride 110 H (98-107) mEq/L Carbon Dioxide 19 L (21-32) mEq/L Anion Gap 17.7 H (5-15) BUN 12 (7-18) mg/dL Creatinine 0.7 (0.55-1.02) mg/dL Est Cr Clr Drug Dosing 86.52 mL/min Estimated GFR (MDRD) > 60 (>60) mL/min BUN/Creatinine Ratio 17.1 (14-18) Glucose 101 H (70-99) mg/dL Calcium 7.9 L (8.5-10.1) mg/dL Magnesium (1.8-2.4) mg/dL Total Bilirubin 0.3 (0.2-1.0) mg/dL AST 28 (15-37) U/L ALT 44 (14-59) U/L Alkaline Phosphatase 70 (46-116) U/L Total Protein 6.8 (6.4-8.2) g/dl Albumin 3.3 L (3.4-5.0) g/dl Globulin 3.5 gm/dL Albumin/Globulin Ratio 0.9 L (1-2) Urine Color (Yellow) Urine Appearance (Clear) Urine pH (5.0-8.0) Ur Specific Raymond (1.005-1.030) Urine Protein (Negative) Urine Glucose (UA) (Negative) Urine Ketones (Negative) Urine Occult Blood (Negative) Urine Nitrite (Negative) Urine Bilirubin (Negative) Urine Urobilinogen (0.2-1.0) Ur Leukocyte Esterase (Negative) Urine RBC (0-5) /hpf Urine WBC (0-5) /hpf Ur Squamous Epith Cells (0-5) /hpf Urine Bacteria (FEW) /hpf Urine Mucus (FEW) /hpf Salicylates (2.8-20) mg/dL Urine Opiates Screen Negative (HDFEUB=228) Ur Buprenorphine Scrn Negative (CUTOFF=10) Ur Oxycodone Screen Negative (ZCC1JJ=043) Urine Methadone Screen Negative (JGCZYE=202) Ur Propoxyphene Screen Negative (ZNZWWF=793) Acetaminophen 0 L (10-30) ug/mL Ur Barbiturates Screen Negative (LQCEXX=237) Ur Tricyclics Screen Negative (MRLUVG=531) Ur Phencyclidine Scrn Negative (CUTOFF=25) Ur Amphetamine Screen Negative (CFECGH=294) U Methamphetamines Scrn Negative (AFNTMM=837) U Benzodiazepines Scrn Presumptive positive H (ELMZZW=384) U Cocaine Metab Screen Negative (HJSQIP=105) U Marijuana (THC) Screen Negative (CUTOFF=50) Ethyl Alcohol 0.25 (0.00) gm% SARS-CoV-2 RNA (JM) (NEGATIVE) 11/03/20 11/03/20 11/04/20 Range/Units 10:48 14:32 06:20 WBC (3.98-10.04) K/mm3 RBC (3.98-5.22) M/mm3 Hgb (11.2-15.7) gm/dl Hct (34.1-44.9) % MCV (79.4-94.8) fl MCH (25.6-32.2) pg MCHC (32.2-35.5) g/dl RDW Std Deviation (36.4-46.3) fL Plt Count (182-369) K/mm3 MPV (9.4-12.3) fl Neut % (Auto) (34.0-71.1) % Lymph % (Auto) (19.3-51.7) % Cameron % (Auto) (4.7-12.5) % Eos % (Auto) (0.7-5.8) Baso % (Auto) (0.1-1.2) % Neut # (Auto) (1.56-6.13) K/mm3 Lymph # (Auto) (1.18-3.74) K/mm3 Cameron # (Auto) (0.24-0.36) K/mm3 Eos # (Auto) (0.04-0.36) K/mm3 Baso # (Auto) (0.01-0.08) K/mm3 Puncture Site ABG pH (7.35-7.45) ABG pCO2 (35.0-45.0) mmHg ABG pO2 (80.0-100.0) mmHg ABG HCO3 (22.0-26.0) meq/L ABG O2 Saturation (96.0-97.0) % ABG Base Excess (-2-2.0) Edenilson Test A-a Gradient mmHg O2 Delivery Device Oxygen Flow Rate FiO2 (21.00-100.00) % Tidal Volume cc PEEP cmH20 Sodium (136-145) mEq/L Potassium (3.5-5.1) mEq/L Chloride (98-107) mEq/L Carbon Dioxide (21-32) mEq/L Anion Gap (5-15) BUN (7-18) mg/dL Creatinine (0.55-1.02) mg/dL Est Cr Clr Drug Dosing mL/min Estimated GFR (MDRD) (>60) mL/min BUN/Creatinine Ratio (14-18) Glucose (70-99) mg/dL Calcium (8.5-10.1) mg/dL Magnesium 1.8 (1.8-2.4) mg/dL Total Bilirubin (0.2-1.0) mg/dL AST (15-37) U/L ALT (14-59) U/L Alkaline Phosphatase (46-116) U/L Total Protein (6.4-8.2) g/dl Albumin (3.4-5.0) g/dl Globulin gm/dL Albumin/Globulin Ratio (1-2) Urine Color (Yellow) Urine Appearance (Clear) Urine pH (5.0-8.0) Ur Specific Raymond (1.005-1.030) Urine Protein (Negative) Urine Glucose (UA) (Negative) Urine Ketones (Negative) Urine Occult Blood (Negative) Urine Nitrite (Negative) Urine Bilirubin (Negative) Urine Urobilinogen (0.2-1.0) Ur Leukocyte Esterase (Negative) Urine RBC (0-5) /hpf Urine WBC (0-5) /hpf Ur Squamous Epith Cells (0-5) /hpf Urine Bacteria (FEW) /hpf Urine Mucus (FEW) /hpf Salicylates 2.5 L 2.1 L (2.8-20) mg/dL Urine Opiates Screen (BYSNEC=951) Ur Buprenorphine Scrn (CUTOFF=10) Ur Oxycodone Screen (QRT8CY=979) Urine Methadone Screen (HUQOAV=563) Ur Propoxyphene Screen (IEOJOT=045) Acetaminophen (10-30) ug/mL Ur Barbiturates Screen (YCDYEX=455) Ur Tricyclics Screen (SGKZHT=978) Ur Phencyclidine Scrn (CUTOFF=25) Ur Amphetamine Screen (QKXAMA=090) U Methamphetamines Scrn (TBIECD=225) U Benzodiazepines Scrn (KULPQN=055) U Cocaine Metab Screen (XZDXWX=083) U Marijuana (THC) Screen (CUTOFF=50) Ethyl Alcohol (0.00) gm% SARS-CoV-2 RNA (JM) (NEGATIVE) Med Orders - Current: Current Medications Acetaminophen (Acetaminophen 650 Mg Supp) 650 mg RECTAL Q4H PRN PRN Reason: Pain (mild 1-3) Famotidine (Famotidine 20 Mg/2 Ml Sdv) 20 mg IVPUSH BID [facility] Last Admin: 11/03/20 20:37 Dose: 20 mg Documented by: Folic Acid (Folic Acid 1 Mg Tab) 1 mg PO DAILY [facility] Heparin Sodium (Porcine) (Heparin Sodium 5,000 Units/Ml Vial) 5,000 units SUBCU T Q8H [facility] Last Admin: 11/04/20 06:22 Dose: 5,000 units Documented by: Sodium Chloride (Normal Saline) 1,000 mls @ 125 mls/hr IV ASDIRECTED [facility] Last Admin: 11/04/20 03:07 Dose: 125 mls/hr Documented by: Sodium Chloride (Normal Saline) 1,000 mls @ 125 mls/hr IV ASDIRECTED [facility] Ondansetron HCl (Ondansetron 4 Mg/2 Ml Sdv) 4 mg IV Q4H PRN PRN Reason: Nausea/Vomiting Sodium Chloride (Sodium Chloride 0.9% 10 Ml Syringe) 10 ml FLUSH ASDIRECTED PRN PRN Reason: Keep Vein Open Last Admin: 11/03/20 10:45 Dose: 10 ml Documented by: Sodium Chloride (Sodium Chloride 0.9% 10 Ml Syringe) 10 ml FLUSH ASDIRECTED PRN PRN Reason: Keep Vein Open Thiamine HCl (Thiamine 100 Mg Tab) 100 mg PO DAILY [facility] Discontinued Medications Etomidate (Etomidate 2 Mg/Ml 20 Ml Sdv) 20 mg IVPUSH ONETIME ONE Stop: 11/03/20 10:16 Last Admin: 11/03/20 10:09 Dose: 20 mg Documented by: Etomidate (Etomidate 2 Mg/Ml 20 Ml Sdv) 40 mg IVPUSH .STK-MED ONE Stop: 11/03/20 13:01 Heparin Sodium (Porcine) (Heparin Sodium 5,000 Units/Ml Vial) 5,000 units SUBCUT Q8H [facility] Last Admin: 11/03/20 12:59 Dose: Not Given Documented by: Propofol (Diprivan 100 Ml) 100 mls @ 2.4 mls/hr IV TITRATE [facility]; Protocol Last Admin: 11/03/20 15:10 Dose: 40 mcg/kg/min, 19.2 mls/hr Documented by: Succinylcholine Chloride (Succinylcholine 200 Mg/10 Ml Mdv) 100 mg IV ONETIME ONE Stop: 11/03/20 10:16 Last Admin: 11/03/20 10:09 Dose: 100 mg Documented by: Succinylcholine Chloride (Succinylcholine 200 Mg/10 Ml Mdv) 200 mg .ROUTE .[facility] ONE Stop: 11/03/20 13:01 Discharge Operative/Procedures - Procedures Performed Intubation Indication: Airway Protection
[2020-11-04] MEDS: Famotidine 20 MG/2 ML SDV IVPUSH SCH (08:56)
[2020-11-04] MEDS ORDERED: Folic Acid 1 MG Tab PO SCH (09:00)
[2020-11-04] MEDS ORDERED: Thiamine 100 MG Tab PO SCH (09:00)
[2020-11-04] MEDS ORDERED: Sertraline 50 MG Tab PO SCH (09:00)
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
== END 2020-11-04 09:45 | disposition home or self-care (01) | DRG 817 ==
LOC: JD.ED 10:04 → JD.ICU 12:44
PROVIDERS: ADMIT Internal Medicine; ATTEND Internal Medicine
DX: T42.4X2A Poisoning by benzodiazepines, intentional self-harm, initial encounter (principal); F10.20 Alcohol dependence, uncomplicated; Y90.0 Blood alcohol level of less than 20 mg/100 ml; F41.9 Anxiety disorder, unspecified; R42 Dizziness and giddiness; G47.00 Insomnia, unspecified; G89.29 Other chronic pain; F32.89 Other specified depressive episodes; Z20.822 Contact with and (suspected) exposure to COVID-19; I10 Essential (primary) hypertension; Z79.899 Other long term (current) drug therapy
CPT/HCPCS: 31500; 36415; 36600; 43752; 51702; 71045; 71045-26; 80053; 80143; 80179; 80306; 80307; 81001; 82803; 83735; 85025; 93005; 93010; 99285-25; 99291; A9270-GY; J0330; J1644; J2704; J3490; J7030; U0002